=== PATIENT | male | born 1950 | race African-American/Black ===

== ENCOUNTER 2019-08-22 15:58 | Inpatient (IN) ==
[2019-08-22] MEDS ORDERED: KETOROLAC 30 MG/1 ML VIAL IV STA (16:26)
[2019-08-22] MEDS ORDERED: ALBUTEROL/IPRATROPIUM 3 ML NEB RESP TX STA (16:26)
[2019-08-22] MEDS ORDERED: ORPHENADRINE 60 MG/2 ML VIAL IV STA (16:26)
[2019-08-22 17:03] LABS: INR 2.9; Partial Thromboplastin Time 33.4 SECS (23.9-33.8)
[2019-08-22 17:05] LABS: PT Patient Result 29.3 SECS (9.8-11.9)
[2019-08-22 17:09] LABS: Alanine Aminotransferase 39 U/L (16-61); Albumin 3.3 G/DL (3.4-5.0); Alkaline Phosphatase 57 U/L (45-117); Aspartate Amino Transferase 29 U/L (0-37); Blood Urea Nitrogen 16 MG/DL (7-18); Calcium 8.3 MG/DL (8.5-10.1); Estimated Glom Filtration Rate 75 ML/MIN; Ferritin 42.6 ng/ml (26-388); Glucose 98 MG/DL (74-106); Total Protein 5.8 G/DL (6.4-8.3)
[2019-08-22 17:11] LABS: Basophils # 0.1 10*3/uL (0.0-0.2); Basophils % 0.2 % (0.0-0.8); Eosinophils # 0.2 10*3/uL (0.0-0.87); Eosinophils % 0.2 % (0.00-10.9); Hematocrit 33.8 VOL% (42.0-52.0); Hemoglobin 9.4 GM/DL (14.0-18.0); Immature Granulocytes % 0.3 %; Immature Granulocytes Absolute 0.22 #; Lymphocytes # 57.3 10*3/uL (1.4-4.0); Lymphocytes % 82.3 % (21.2-54.2); Mean Corpuscular HGB Conc 27.8 GM/DL (32-36); Mean Corpuscular Volume 93.9 FL (87-102); Mean Platelet Volume 14.4 FL (9.6-12.0); NRBC # 0.08 10*3/uL; Platelet Count 53 T/CUMM (130-400); Red Cell Distribution Width 17.2 % (9.3-17.3); Troponin I 0.048 NG/ML (0.00-0.045)
[2019-08-22 17:13] LABS: White Blood Count 69.7 T/CUMM (4-12)
[2019-08-22 17:17] LABS: Eosinophils 1 % (0-10); Lymphocytes 84 % (20-55); Nucleated Red Blood Cells 1 (0-5); Segmented Neutrophils 13 % (50-85)
[2019-08-22 17:18] LABS: Platelet Estimate Decreased; Smudge Cells Moderate
[2019-08-22 17:19] LABS: Atypical Lymphocytes Few; Hypochromasia Slight; Macrocytosis Slight; Polychromasia Few; Total Cells Counted 100
[2019-08-22] MEDS ORDERED: ACETAMINOPHEN 325 MG TABLET PO PRN (18:17)
[2019-08-22] MEDS ORDERED: MAGNESIUM SULF RIDER 2 GM in PREMIX 1 EACH IV PRN (18:17)
[2019-08-22] MEDS ORDERED: GLUCAGON 1 MG VIAL IM PRN (18:17)
[2019-08-22] MEDS ORDERED: ZALEPLON 5 MG CAPSULE PO PRN (18:17)
[2019-08-22] MEDS ORDERED: MAGNESIUM SULF RIDER 4 GM in PREMIX 1 EACH IV PRN (18:17)
[2019-08-22] MEDS ORDERED: DEXTROSE 10% 250 ML BAG IV PRN (18:17)
[2019-08-22 18:18] LABS: Apearance,Urine CLEAR (Clear); Bilirubin,Urine Negative (Negative); Blood, Urine Negative (Negative); Glucose,Urine (UA) Negative (Negative); Ketones,Urine Negative (Negative); Mucus,Urine Occasional /LPF (Occasional); Nitrite,Urine Negative (Negative); Protein,Urine 30 MG/DL; RBC,Urine 3 /HPF (0-4); Urine Color Amber (Yellow); Urine Specific Gravity 1.023 (1.001-1.035); WBC,Urine 2 /HPF (0-6)
[2019-08-22 18:23] LABS: Barbiturates Screen,Urine Negative (Negative); Benzodiazepines Screen,Urine Negative (Negative); Cannabinoid Screen,Urine Negative (Negative); Opiate Screen,Urine Negative (Negative); Phencyclidine Screen,Urine Negative (Negative)
[2019-08-22] MEDS ORDERED: WARFARIN 7.5 MG TABLET PO SCH (18:30)
[2019-08-22] MEDS: ALBUTEROL/IPRATROPIUM 3 ML NEB RESP TX SCH (19:40)
[2019-08-22] MEDS: FAMOTIDINE 20 MG TABLET PO SCH (23:10)
[2019-08-22] MEDS: DONEPEZIL 5 MG TABLET PO SCH (23:11)
[2019-08-22] MEDS: hydrALAZINE 25 MG TABLET PO SCH (23:11)
[2019-08-22] MEDS: FUROSEMIDE 40 MG/4 ML VIAL IV SCH (23:14)
[2019-08-23] MEDS: ALBUTEROL/IPRATROPIUM 3 ML NEB RESP TX SCH ×4 (00:51→19:28)
[2019-08-23 07:31] LABS: INR 2.9; PT Patient Result 29.8 SECS (9.8-11.9)
[2019-08-23 07:40] LABS: Albumin 3.8 G/DL (3.4-5.0); Calcium 8.7 MG/DL (8.5-10.1); Osmolality,Calculated 286.8 MOS/KG (273-304); Total Protein 6.6 G/DL (6.4-8.3)
[2019-08-23 07:59] LABS: Basophils # 0.1 10*3/uL (0.0-0.2); Basophils % 0.2 % (0.0-0.8); Eosinophils # 0.1 10*3/uL (0.0-0.87); Eosinophils % 0.2 % (0.00-10.9); Hematocrit 35.9 VOL% (42.0-52.0); Immature Granulocytes % 0.4 %; Immature Granulocytes Absolute 0.22 #; Lymphocytes # 41.6 10*3/uL (1.4-4.0); Lymphocytes % 77.8 % (21.2-54.2); Mean Corpuscular HGB Conc 27.3 GM/DL (32-36); Mean Corpuscular Volume 93.5 FL (87-102); Mean Platelet Volume 13.3 FL (9.6-12.0); NRBC # 0.08 10*3/uL; Neutrophils % 14.4 % (38.7-73.9); Red Blood Count 3.84 MC/CUMM (3.8-5.5); Red Cell Distribution Width 17.2 % (9.3-17.3)
[2019-08-23 08:03] LABS: Hemoglobin 9.8 GM/DL (14.0-18.0); Platelet Count 52 T/CUMM (130-400); White Blood Count 53.5 T/CUMM (4-12)
[2019-08-23 08:08] LABS: Atypical Lymphocytes Few; Band Neutrophils 1 % (0-10); Lymphocytes 76 % (20-55); Platelet Estimate Decreased; Segmented Neutrophils 19 % (50-85); Total Cells Counted 100
[2019-08-23 08:09] LABS: Anisocytosis 1+; Macrocytosis Slight; Polychromasia Slight; Smudge Cells 1+
[2019-08-23] MEDS ORDERED: PANTOPRAZOLE 40 MG TABLET PO SCH (09:00)
[2019-08-23] MEDS: LOSARTAN 50 MG TABLET PO SCH (09:26)
[2019-08-23] MEDS: METOPROLOL TARTRATE 25 MG TABLET PO SCH (09:26)
[2019-08-23] MEDS: hydrALAZINE 25 MG TABLET PO SCH ×3 (09:26→22:22)
[2019-08-23] MEDS: LORATADINE 10 MG TABLET PO SCH (09:26)
[2019-08-23] MEDS: ISOSORBIDE MONONITRATE 30 MG TABLET PO SCH (09:26)
[2019-08-23] MEDS: FAMOTIDINE 20 MG TABLET PO SCH ×2 (09:27→22:23)
[2019-08-23] MEDS: POTASSIUM CHLORIDE 20 MEQ TABLET PO PRN (09:27)
[2019-08-23] MEDS: SIMVASTATIN 20 MG TABLET PO SCH (09:27)
[2019-08-23] MEDS: FUROSEMIDE 40 MG/4 ML VIAL IV SCH ×2 (09:29→15:15)
[2019-08-23 12:27] LABS: Apearance,Urine CLEAR (Clear); Bilirubin,Urine Negative (Negative); Blood, Urine Large mg/dL (Negative); Glucose,Urine (UA) Negative (Negative); Ketones,Urine Negative (Negative); Nitrite,Urine Negative (Negative); Protein,Urine Negative; RBC,Urine 282 /HPF (0-4); Urine Color Straw (Yellow); Urine Specific Gravity 1.005 (1.001-1.035); Urine Urobilinogen < 2.0 EU/DL (0.2-1.0); WBC,Urine 2 /HPF (0-6)
[2019-08-23] MEDS ORDERED: WARFARIN 5 MG TABLET PO SCH (18:30)
[2019-08-23] MEDS ORDERED: TAMSULOSIN 0.4 MG CAPSULE PO SCH (21:00)
[2019-08-23] MEDS: DONEPEZIL 5 MG TABLET PO SCH (22:22)
[2019-08-24] MEDS: ALBUTEROL/IPRATROPIUM 3 ML NEB RESP TX SCH ×4 (01:59→19:35)
[2019-08-24 05:31] LABS: Calcium 8.2 MG/DL (8.5-10.1); Osmolality,Calculated 284.1 MOS/KG (273-304)
[2019-08-24 05:38] LABS: Basophils # 0.2 10*3/uL (0.0-0.2); Basophils % 0.3 % (0.0-0.8); Eosinophils # 0.1 10*3/uL (0.0-0.87); Eosinophils % 0.3 % (0.00-10.9); Hemoglobin 9.4 GM/DL (14.0-18.0); Immature Granulocytes % 0.3 %; Immature Granulocytes Absolute 0.18 #; Lymphocytes # 37.8 10*3/uL (1.4-4.0); Lymphocytes % 73.1 % (21.2-54.2); Mean Corpuscular HGB Conc 28.5 GM/DL (32-36); Mean Corpuscular Volume 90.7 FL (87-102); Monocytes % 7.9 % (1.7-12.7); NRBC # 0.03 10*3/uL; Neutrophils % 18.1 % (38.7-73.9); Platelet Count 46 T/CUMM (130-400); Red Blood Count 3.64 MC/CUMM (3.8-5.5); Red Cell Distribution Width 16.9 % (9.3-17.3)
[2019-08-24 05:40] LABS: White Blood Count 51.8 T/CUMM (4-12)
[2019-08-24 05:58] LABS: Atypical Lymphocytes Moderate; Band Neutrophils 1 % (0-10); Lymphocytes 72 % (20-55); Segmented Neutrophils 25 % (50-85); Total Cells Counted 100
[2019-08-24 05:59] LABS: Hypochromasia 1+; Macrocytosis Slight; Smudge Cells Few
[2019-08-24 06:00] LABS: Platelet Estimate Decreased; Polychromasia Slight
[2019-08-24] MEDS ORDERED: MAGNESIUM HYDROXIDE SUSP 30 ML UDCUP PO ONE (08:29)
[2019-08-24] MEDS ORDERED: POTASSIUM CHLORIDE 20 MEQ TABLET PO ONE (08:33)
[2019-08-24] MEDS: hydrALAZINE 25 MG TABLET PO SCH ×3 (09:22→21:45)
[2019-08-24] MEDS: ISOSORBIDE MONONITRATE 30 MG TABLET PO SCH (09:22)
[2019-08-24] MEDS: SIMVASTATIN 20 MG TABLET PO SCH (09:22)
[2019-08-24] MEDS: TAMSULOSIN 0.4 MG CAPSULE PO SCH ×2 (09:22→21:44)
[2019-08-24] MEDS: LOSARTAN 50 MG TABLET PO SCH (09:23)
[2019-08-24] MEDS: LORATADINE 10 MG TABLET PO SCH (09:23)
[2019-08-24] MEDS: FAMOTIDINE 20 MG TABLET PO SCH ×2 (09:23→21:44)
[2019-08-24] MEDS: METOPROLOL TARTRATE 25 MG TABLET PO SCH (09:24)
[2019-08-24] MEDS: FUROSEMIDE 40 MG/4 ML VIAL IV SCH ×2 (09:25→16:00)
[2019-08-24] MEDS: POTASSIUM CHLORIDE 20 MEQ TABLET PO PRN ×2 (14:12→16:01)
[2019-08-24] MEDS: ASPIRIN EC 81 MG TABLET PO SCH (18:20)
[2019-08-24] MEDS: DONEPEZIL 5 MG TABLET PO SCH (21:45)
[2019-08-25 05:14] LABS: Calcium 8.3 MG/DL (8.5-10.1); Osmolality,Calculated 283.1 MOS/KG (273-304)
[2019-08-25 05:32] LABS: Basophils # 0.1 10*3/uL (0.0-0.2); Basophils % 0.1 % (0.0-0.8); Eosinophils # 0.2 10*3/uL (0.0-0.87); Eosinophils % 0.4 % (0.00-10.9); Hematocrit 34.7 VOL% (42.0-52.0); Hemoglobin 9.9 GM/DL (14.0-18.0); Immature Granulocytes % 0.3 %; Immature Granulocytes Absolute 0.17 #; Lymphocytes # 46.7 10*3/uL (1.4-4.0); Lymphocytes % 78.9 % (21.2-54.2); Mean Corpuscular HGB Conc 28.5 GM/DL (32-36); Mean Corpuscular Volume 90.4 FL (87-102); Mean Platelet Volume 13.9 FL (9.6-12.0); NRBC # 0.02 10*3/uL; Neutrophils % 13.3 % (38.7-73.9); Platelet Count 48 T/CUMM (130-400); Red Blood Count 3.84 MC/CUMM (3.8-5.5); Red Cell Distribution Width 16.9 % (9.3-17.3)
[2019-08-25 05:58] LABS: White Blood Count 59.2 T/CUMM (4-12)
[2019-08-25 06:38] LABS: Eosinophils 1 % (0-10); Lymphocytes 78 % (20-55); Segmented Neutrophils 20 % (50-85); Total Cells Counted 100
[2019-08-25 06:39] LABS: Anisocytosis 1+; Platelet Estimate Decreased; Smudge Cells 2+
[2019-08-25] MEDS: ALBUTEROL/IPRATROPIUM 3 ML NEB RESP TX SCH ×4 (07:27→20:52)
[2019-08-25] MEDS: hydrALAZINE 25 MG TABLET PO SCH ×3 (09:05→21:22)
[2019-08-25] MEDS: FUROSEMIDE 40 MG/4 ML VIAL IV SCH (09:05)
[2019-08-25] MEDS: ASPIRIN EC 81 MG TABLET PO SCH (09:06)
[2019-08-25] MEDS: METOPROLOL TARTRATE 25 MG TABLET PO SCH (09:06)
[2019-08-25] MEDS: SIMVASTATIN 20 MG TABLET PO SCH (09:06)
[2019-08-25] MEDS: ISOSORBIDE MONONITRATE 30 MG TABLET PO SCH (09:07)
[2019-08-25] MEDS: LOSARTAN 50 MG TABLET PO SCH (09:07)
[2019-08-25] MEDS: LORATADINE 10 MG TABLET PO SCH (09:07)
[2019-08-25] MEDS: FAMOTIDINE 20 MG TABLET PO SCH ×2 (09:07→21:22)
[2019-08-25] MEDS: TAMSULOSIN 0.4 MG CAPSULE PO SCH ×2 (09:07→21:21)
[2019-08-25] MEDS: POTASSIUM CHLORIDE 20 MEQ TABLET PO PRN (10:47)
[2019-08-25] MEDS: FUROSEMIDE 40 MG TABLET PO SCH (15:30)
[2019-08-25] MEDS: DONEPEZIL 5 MG TABLET PO SCH (21:22)
[2019-08-25] MEDS: FINASTERIDE 5 MG TABLET PO SCH (21:22)
[2019-08-26] MEDS: ALBUTEROL/IPRATROPIUM 3 ML NEB RESP TX SCH ×4 (00:45→19:28)
[2019-08-26 05:26] LABS: Basophils # 0.1 10*3/uL (0.0-0.2); Basophils % 0.1 % (0.0-0.8); Eosinophils # 0.3 10*3/uL (0.0-0.87); Eosinophils % 0.6 % (0.00-10.9); Hematocrit 34.2 VOL% (42.0-52.0); Immature Granulocytes % 0.2 %; Immature Granulocytes Absolute 0.14 #; Lymphocytes # 42.6 10*3/uL (1.4-4.0); Mean Corpuscular HGB Conc 29.2 GM/DL (32-36); Mean Corpuscular Volume 88.8 FL (87-102); Mean Platelet Volume 12.7 FL (9.6-12.0); Monocytes % 12.2 % (1.7-12.7); NRBC # 0.02 10*3/uL; Neutrophils % 10.9 % (38.7-73.9); Platelet Count 45 T/CUMM (130-400); Red Blood Count 3.85 MC/CUMM (3.8-5.5); Red Cell Distribution Width 16.8 % (9.3-17.3)
[2019-08-26 05:52] LABS: Hemoglobin 10.1 GM/DL (14.0-18.0)
[2019-08-26 05:54] LABS: Albumin 2.9 G/DL (3.4-5.0); Bilirubin,Total 1.3 MG/DL (0.2-1.0); Calcium 8.3 MG/DL (8.5-10.1); Osmolality,Calculated 278.4 MOS/KG (273-304); Risk Ratio 4.06; Total Protein 5.3 G/DL (6.4-8.3); VLDL CHOLESTEROL 21.2 MG/DL
[2019-08-26 05:54] LABS: White Blood Count 56.1 T/CUMM (4-12)
[2019-08-26 05:56] LABS: INR 1.9; PT Patient Result 19.9 SECS (9.8-11.9)
[2019-08-26 06:08] LABS: Band Neutrophils 1 % (0-10); Eosinophils 1 % (0-10); Lymphocytes 81 % (20-55); Segmented Neutrophils 15 % (50-85); Smudge Cells 1+; Total Cells Counted 100
[2019-08-26 06:09] LABS: Anisocytosis 1+; Platelet Estimate Decreased
[2019-08-26] MEDS: ASPIRIN EC 81 MG TABLET PO SCH (08:49)
[2019-08-26] MEDS: METOPROLOL TARTRATE 25 MG TABLET PO SCH (08:49)
[2019-08-26] MEDS: hydrALAZINE 25 MG TABLET PO SCH ×3 (08:49→22:17)
[2019-08-26] MEDS: FUROSEMIDE 40 MG TABLET PO SCH ×2 (08:49→16:41)
[2019-08-26] MEDS: SIMVASTATIN 20 MG TABLET PO SCH (08:50)
[2019-08-26] MEDS: LORATADINE 10 MG TABLET PO SCH (08:50)
[2019-08-26] MEDS: ISOSORBIDE MONONITRATE 30 MG TABLET PO SCH (08:50)
[2019-08-26] MEDS: FAMOTIDINE 20 MG TABLET PO SCH ×2 (08:50→22:17)
[2019-08-26] MEDS: LOSARTAN 50 MG TABLET PO SCH (08:50)
[2019-08-26] MEDS: TAMSULOSIN 0.4 MG CAPSULE PO SCH ×2 (08:50→22:17)
[2019-08-26] MEDS: POTASSIUM CHLORIDE 20 MEQ TABLET PO PRN (16:41)
[2019-08-26] MEDS ORDERED: WARFARIN 5 MG TABLET PO SCH (18:00)
[2019-08-26] MEDS: FINASTERIDE 5 MG TABLET PO SCH (22:17)
[2019-08-26] MEDS: DONEPEZIL 5 MG TABLET PO SCH (22:22)
[2019-08-27] MEDS: ALBUTEROL/IPRATROPIUM 3 ML NEB RESP TX SCH ×4 (01:13→20:18)
[2019-08-27 06:30] LABS: INR 1.4; PT Patient Result 14.6 SECS (9.8-11.9)
[2019-08-27 06:49] LABS: Basophils # 0.1 10*3/uL (0.0-0.2); Basophils % 0.2 % (0.0-0.8); Eosinophils # 0.3 10*3/uL (0.0-0.87); Eosinophils % 0.5 % (0.00-10.9); Hematocrit 35.6 VOL% (42.0-52.0); Hemoglobin 10.2 GM/DL (14.0-18.0); Immature Granulocytes % 0.2 %; Immature Granulocytes Absolute 0.13 #; Lymphocytes % 82.6 % (21.2-54.2); Mean Corpuscular HGB Conc 28.7 GM/DL (32-36); Mean Corpuscular Volume 90.4 FL (87-102); Mean Platelet Volume 13.3 FL (9.6-12.0); Monocytes % 7.9 % (1.7-12.7); Neutrophils % 8.6 % (38.7-73.9); Platelet Count 49 T/CUMM (130-400); Red Blood Count 3.94 MC/CUMM (3.8-5.5); Red Cell Distribution Width 16.3 % (9.3-17.3)
[2019-08-27 06:52] LABS: Calcium 8.3 MG/DL (8.5-10.1); Osmolality,Calculated 278.4 MOS/KG (273-304)
[2019-08-27 06:53] LABS: Albumin 2.9 G/DL (3.4-5.0); Bilirubin,Total 1.7 MG/DL (0.2-1.0); Calcium 8.1 MG/DL (8.5-10.1); Osmolality,Calculated 280.3 MOS/KG (273-304); Total Protein 5.3 G/DL (6.4-8.3)
[2019-08-27 06:53] LABS: White Blood Count 58.1 T/CUMM (4-12)
[2019-08-27 07:04] LABS: Atypical Lymphocytes Few; Hypochromasia 1+; Lymphocytes 83 % (20-55); Platelet Estimate Decreased; Segmented Neutrophils 15 % (50-85); Smudge Cells Moderate; Total Cells Counted 100
[2019-08-27] MEDS: METOPROLOL TARTRATE 25 MG TABLET PO SCH ×3 (09:03→21:07)
[2019-08-27] MEDS: LORATADINE 10 MG TABLET PO SCH (09:03)
[2019-08-27] MEDS: hydrALAZINE 25 MG TABLET PO SCH ×3 (09:03→21:08)
[2019-08-27] MEDS: LOSARTAN 50 MG TABLET PO SCH (09:04)
[2019-08-27] MEDS: FAMOTIDINE 20 MG TABLET PO SCH ×2 (09:04→21:07)
[2019-08-27] MEDS: SIMVASTATIN 20 MG TABLET PO SCH (09:04)
[2019-08-27] MEDS: TAMSULOSIN 0.4 MG CAPSULE PO SCH ×2 (09:04→21:08)
[2019-08-27] MEDS: ISOSORBIDE MONONITRATE 30 MG TABLET PO SCH (09:04)
[2019-08-27] MEDS: FUROSEMIDE 40 MG TABLET PO SCH ×2 (09:04→16:56)
[2019-08-27] MEDS ORDERED: WARFARIN 7.5 MG TABLET PO SCH (18:00)
[2019-08-27] MEDS: DONEPEZIL 5 MG TABLET PO SCH (21:07)
[2019-08-27] MEDS: FINASTERIDE 5 MG TABLET PO SCH (21:07)
[2019-08-28] MEDS: ALBUTEROL/IPRATROPIUM 3 ML NEB RESP TX SCH ×4 (01:01→21:01)
[2019-08-28 05:33] LABS: Basophils # 0.1 10*3/uL (0.0-0.2); Basophils % 0.1 % (0.0-0.8); Eosinophils # 0.3 10*3/uL (0.0-0.87); Eosinophils % 0.5 % (0.00-10.9); Hematocrit 35.4 VOL% (42.0-52.0); Hemoglobin 10.2 GM/DL (14.0-18.0); Immature Granulocytes % 0.3 %; Immature Granulocytes Absolute 0.18 #; Lymphocytes # 53.1 10*3/uL (1.4-4.0); Lymphocytes % 76.6 % (21.2-54.2); Mean Corpuscular HGB Conc 28.8 GM/DL (32-36); Mean Corpuscular Volume 88.7 FL (87-102); Mean Platelet Volume 13.6 FL (9.6-12.0); Monocytes % 12.6 % (1.7-12.7); NRBC # 0.03 10*3/uL; Neutrophils % 9.9 % (38.7-73.9); Platelet Count 50 T/CUMM (130-400); Red Blood Count 3.99 MC/CUMM (3.8-5.5); Red Cell Distribution Width 16.2 % (9.3-17.3)
[2019-08-28 05:40] LABS: White Blood Count 69.3 T/CUMM (4-12)
[2019-08-28 05:41] LABS: INR 1.3; PT Patient Result 13.5 SECS (9.8-11.9)
[2019-08-28 05:54] LABS: Atypical Lymphocytes 1+; Hypochromasia 1+; Lymphocytes 79 % (20-55); Platelet Estimate Decreased; Segmented Neutrophils 19 % (50-85); Smudge Cells Moderate; Total Cells Counted 100
[2019-08-28 05:59] LABS: Calcium 8.2 MG/DL (8.5-10.1); Osmolality,Calculated 277.5 MOS/KG (273-304)
[2019-08-28 06:03] LABS: Bilirubin,Total 0.8 MG/DL (0.2-1.0); Calcium 8.2 MG/DL (8.5-10.1); Osmolality,Calculated 275.7 MOS/KG (273-304); Total Protein 5.8 G/DL (6.4-8.3)
[2019-08-28] MEDS ORDERED: LIDOCAINE 2% TOP JELLY 20 ML VIAL INTRAURETH ONE (07:21)
[2019-08-28] MEDS ORDERED: NEOMYCIN/POLYMYXIN IRRIG SOLN 1 ML AMP BLADDERIRR ONE (09:05)
[2019-08-28] MEDS: FUROSEMIDE 40 MG TABLET PO SCH ×2 (09:31→15:07)
[2019-08-28] MEDS: LORATADINE 10 MG TABLET PO SCH (09:31)
[2019-08-28] MEDS: ISOSORBIDE MONONITRATE 30 MG TABLET PO SCH (09:32)
[2019-08-28] MEDS: TAMSULOSIN 0.4 MG CAPSULE PO SCH ×2 (09:32→20:19)
[2019-08-28] MEDS: FAMOTIDINE 20 MG TABLET PO SCH ×2 (09:32→20:18)
[2019-08-28] MEDS: METOPROLOL TARTRATE 25 MG TABLET PO SCH ×2 (09:32→20:18)
[2019-08-28] MEDS: LOSARTAN 50 MG TABLET PO SCH (09:32)
[2019-08-28] MEDS: hydrALAZINE 25 MG TABLET PO SCH ×3 (09:32→20:18)
[2019-08-28] MEDS: SIMVASTATIN 20 MG TABLET PO SCH (09:33)
[2019-08-28] MEDS: FINASTERIDE 5 MG TABLET PO SCH (20:18)
[2019-08-28] MEDS: DONEPEZIL 5 MG TABLET PO SCH (20:19)
[2019-08-29] MEDS: ALBUTEROL/IPRATROPIUM 3 ML NEB RESP TX SCH ×2 (01:09→07:12)
[2019-08-29 08:15] VITALS: BP 118/76
[2019-08-29] MEDS: FUROSEMIDE 40 MG TABLET PO SCH (08:53)
[2019-08-29] MEDS: METOPROLOL TARTRATE 25 MG TABLET PO SCH (08:53)
[2019-08-29] MEDS: ISOSORBIDE MONONITRATE 30 MG TABLET PO SCH (08:53)
[2019-08-29] MEDS: hydrALAZINE 25 MG TABLET PO SCH (08:53)
[2019-08-29] MEDS: LORATADINE 10 MG TABLET PO SCH (08:53)
[2019-08-29] MEDS: LOSARTAN 50 MG TABLET PO SCH (08:53)
[2019-08-29] MEDS: SIMVASTATIN 20 MG TABLET PO SCH (08:54)
[2019-08-29] MEDS: TAMSULOSIN 0.4 MG CAPSULE PO SCH (08:54)
[2019-08-29] MEDS: FAMOTIDINE 20 MG TABLET PO SCH (08:54)
== END 2019-08-29 13:25 | disposition home health service (06) | DRG 725 ==
LOC: N.EDINP 15:58 → N.ED 15:58 → SUATTDRO 18:17 → N.TELES 21:11 → SUATTDRO 08-26 15:16
PROVIDERS: ADMIT Family Medicine; ATTEND Internal Medicine

== ENCOUNTER 2022-03-18 00:10 | Inpatient (IN) ==
[2022-03-18] MEDS ORDERED: SODIUM CHLORIDE 0.9% 1,000 ML IV STA (00:23)
[2022-03-18] MEDS ORDERED: ACETAMINOPHEN 500 MG TABLET PO STA (00:23)
[2022-03-18 01:21] LABS: Basophils % 0.4 % (0.0-0.8); Eosinophils % 0.8 % (0.00-10.9); Hematocrit 33.1 VOL% (42.0-52.0); Hemoglobin 10.4 GM/DL (14.0-18.0); Immature Granulocytes % 0.4 %; Immature Granulocytes Absolute 0.01 #; Lymphocytes # 0.5 10*3/uL (1.4-4.0); Mean Corpuscular HGB Conc 31.4 GM/DL (32-36); Mean Corpuscular Volume 98.2 FL (87-102); Mean Platelet Volume 12.6 FL (9.6-12.0); Monocytes # 0.1 10*3/uL (0.11-0.8); Monocytes % 3.7 % (1.7-12.7); Neutrophils % 72.7 % (38.7-73.9); Red Blood Count 3.37 MC/CUMM (3.8-5.5); Red Cell Distribution Width 14.4 % (9.3-17.3); White Blood Count 2.4 T/CUMM (4-12)
[2022-03-18 01:27] LABS: Platelet Count 39 T/CUMM (130-400)
[2022-03-18 01:30] LABS: Bacteria,Urine Occasional /HPF (Few); Bilirubin,Urine Negative (Negative); Blood, Urine Negative (Negative); Glucose,Urine (UA) Negative (Negative); Ketones,Urine Negative (Negative); Mucus,Urine Occasional /LPF (Occasional); Nitrite,Urine Negative (Negative); Protein,Urine 30 mg/dL (Negative); RBC,Urine 2 /HPF (0-4); Urine Appearance Slightly Hazy (Clear); Urine Color Yellow (Yellow); Urine Specific Gravity 1.016 (1.001-1.035)
[2022-03-18 01:35] LABS: Albumin 3.2 G/DL (3.4-5.0); Bilirubin,Total 1.5 MG/DL (0.20-1.00); Calcium 8.2 MG/DL (8.5-10.1); Osmolality,Calculated 278.7 MOS/KG (273-304); Potassium 3.5 MMOL/L (3.5-5.1); Total Protein 6.1 G/DL (6.4-8.2)
[2022-03-18] MEDS ORDERED: CEFEPIME 1,000 MG in SODIUM CHLORIDE 0.9% 100 ML IV STA (02:12)
[2022-03-18 02:40] LABS: Platelet Estimate Decreased
[2022-03-18] MEDS ORDERED: ALUMINUM/MAGNES/SIMETH MAX STR 30 ML UDCUP PO PRN (02:55)
[2022-03-18] MEDS ORDERED: ACETAMINOPHEN 325 MG TABLET PO PRN (02:55)
[2022-03-18] MEDS ORDERED: ONDANSETRON 4 MG/2 ML VIAL IV PRN (02:55)
[2022-03-18] MEDS: ALBUTEROL/IPRATROPIUM 3 ML NEB RESP TX SCH ×3 (07:00→19:55)
[2022-03-18] MEDS ORDERED: MEROPENEM 500 MG VIAL ONE (08:43)
[2022-03-18] MEDS ORDERED: SODIUM CHLORIDE 0.9% 100 ML IV ONE (08:43)
[2022-03-18] MEDS: carvediloL 3.125 MG TABLET PO SCH ×2 (08:47→21:34)
[2022-03-18] MEDS: DOCUSATE SODIUM 100 MG CAPSULE PO SCH ×2 (08:47→21:34)
[2022-03-18] MEDS: ENOXAPARIN 40 MG/0.4 ML SYRINGE SUBCUT SCH (08:48)
[2022-03-18] MEDS: PANTOPRAZOLE 40 MG TABLET PO SCH (08:48)
[2022-03-18 09:33] LABS: Basophils % 1.2 % (0.0-0.8); Eosinophils % 1.2 % (0.00-10.9); Hematocrit 51.1 VOL% (42.0-52.0); Hemoglobin 16.1 GM/DL (14.0-18.0); Lymphocytes # 0.2 10*3/uL (1.4-4.0); Lymphocytes % 17.9 % (21.2-54.2); Mean Corpuscular HGB Conc 31.5 GM/DL (32-36); Mean Corpuscular Volume 98.1 FL (87-102); Monocytes % 1.2 % (1.7-12.7); Neutrophils % 78.5 % (38.7-73.9); Red Blood Count 5.21 MC/CUMM (3.8-5.5); Red Cell Distribution Width 14.3 % (9.3-17.3)
[2022-03-18 09:41] LABS: Platelet Count 15 T/CUMM (130-400)
[2022-03-18 09:42] LABS: White Blood Count 0.8 T/CUMM (4-12)
[2022-03-18 09:54] LABS: Lymphocytes 20 % (20-55); Total Cells Counted 100
[2022-03-18 09:55] LABS: Platelet Estimate Decreased
[2022-03-18] MEDS ORDERED: MEROPENEM 1,000 MG in SODIUM CHLORIDE 0.9% 100 ML IV SCH (10:00)
[2022-03-18 10:10] LABS: Eosinophils % 1.1 % (0.00-10.9); Hematocrit 30.8 VOL% (42.0-52.0); Hemoglobin 9.3 GM/DL (14.0-18.0); Immature Granulocytes % 0.5 %; Immature Granulocytes Absolute 0.01 #; Lymphocytes # 0.4 10*3/uL (1.4-4.0); Lymphocytes % 20.9 % (21.2-54.2); Mean Corpuscular HGB Conc 30.2 GM/DL (32-36); Mean Platelet Volume 12.5 FL (9.6-12.0); Monocytes # 0.1 10*3/uL (0.11-0.8); Monocytes % 2.7 % (1.7-12.7); Neutrophils % 74.8 % (38.7-73.9); Red Blood Count 3.02 MC/CUMM (3.8-5.5); Red Cell Distribution Width 14.4 % (9.3-17.3); White Blood Count 1.8 T/CUMM (4-12)
[2022-03-18 10:18] LABS: Platelet Count 35 T/CUMM (130-400)
[2022-03-18] MEDS: MEROPENEM 500 MG in SODIUM CHLORIDE 0.9% 100 ML IV SCH ×3 (10:30→21:34)
[2022-03-18 10:36] LABS: Lymphocytes 13 % (20-55); Total Cells Counted 100
[2022-03-18 10:55] LABS: Platelet Estimate Decreased
[2022-03-18] MEDS: LACTATED RINGERS 1,000 ML IV SCH (16:50)
[2022-03-19] MEDS: ALBUTEROL/IPRATROPIUM 3 ML NEB RESP TX SCH ×4 (01:13→19:38)
[2022-03-19] MEDS: MEROPENEM 500 MG in SODIUM CHLORIDE 0.9% 100 ML IV SCH ×4 (04:37→21:47)
[2022-03-19 05:21] LABS: Eosinophils % 0.6 % (0.00-10.9); Hematocrit 27.1 VOL% (42.0-52.0); Hemoglobin 8.5 GM/DL (14.0-18.0); Immature Granulocytes % 0.6 %; Immature Granulocytes Absolute 0.01 #; Lymphocytes # 0.4 10*3/uL (1.4-4.0); Lymphocytes % 24.8 % (21.2-54.2); Mean Corpuscular HGB Conc 31.4 GM/DL (32-36); Mean Corpuscular Volume 99.3 FL (87-102); Mean Platelet Volume 13.6 FL (9.6-12.0); Monocytes # 0.1 10*3/uL (0.11-0.8); Monocytes % 6.2 % (1.7-12.7); Neutrophils % 67.8 % (38.7-73.9); Red Blood Count 2.73 MC/CUMM (3.8-5.5); Red Cell Distribution Width 14.2 % (9.3-17.3); White Blood Count 1.6 T/CUMM (4-12)
[2022-03-19 05:23] LABS: Platelet Count 25 T/CUMM (130-400)
[2022-03-19 05:33] LABS: Albumin 2.8 G/DL (3.4-5.0); Bilirubin,Total 1.5 MG/DL (0.20-1.00); Calcium 7.9 MG/DL (8.5-10.1); Osmolality,Calculated 279.5 MOS/KG (273-304); Potassium 3.6 MMOL/L (3.5-5.1); Total Protein 5.4 G/DL (6.4-8.2)
[2022-03-19 05:54] LABS: Lymphocytes 27 % (20-55); Stomatocytes Few; Total Cells Counted 100
[2022-03-19 05:55] LABS: Platelet Estimate Decreased
[2022-03-19] MEDS: LACTATED RINGERS 1,000 ML IV SCH ×2 (06:49→18:27)
[2022-03-19] MEDS ORDERED: FILGRASTIM-SNDZ 300 MCG/0.5 ML SYRINGE SUBCUT ONE (08:50)
[2022-03-19] MEDS: carvediloL 3.125 MG TABLET PO SCH ×2 (09:51→21:47)
[2022-03-19] MEDS: PANTOPRAZOLE 40 MG TABLET PO SCH (09:52)
[2022-03-19] MEDS: DOCUSATE SODIUM 100 MG CAPSULE PO SCH ×2 (09:53→21:46)
[2022-03-19] MEDS: ENOXAPARIN 40 MG/0.4 ML SYRINGE SUBCUT SCH (09:56)
[2022-03-19] MEDS: TAMSULOSIN 0.4 MG CAPSULE PO SCH (21:49)
[2022-03-20] MEDS: ALBUTEROL/IPRATROPIUM 3 ML NEB RESP TX SCH ×4 (00:08→19:32)
[2022-03-20 04:52] LABS: Albumin 2.5 G/DL (3.4-5.0); Bilirubin,Total 1.2 MG/DL (0.20-1.00); Calcium 7.3 MG/DL (8.5-10.1); Osmolality,Calculated 276.7 MOS/KG (273-304); Potassium 3.5 MMOL/L (3.5-5.1)
[2022-03-20] MEDS: MEROPENEM 500 MG in SODIUM CHLORIDE 0.9% 100 ML IV SCH ×4 (05:31→22:00)
[2022-03-20 07:37] LABS: Eosinophils % 0.6 % (0.00-10.9); Hematocrit 25.1 VOL% (42.0-52.0); Hemoglobin 7.9 GM/DL (14.0-18.0); Immature Granulocytes % 1.2 %; Immature Granulocytes Absolute 0.02 #; Lymphocytes # 0.3 10*3/uL (1.4-4.0); Lymphocytes % 19.8 % (21.2-54.2); Mean Corpuscular HGB Conc 31.5 GM/DL (32-36); Mean Corpuscular Volume 98.8 FL (87-102); Mean Platelet Volume 13.7 FL (9.6-12.0); Monocytes # 0.1 10*3/uL (0.11-0.8); Neutrophils % 72.4 % (38.7-73.9); Red Blood Count 2.54 MC/CUMM (3.8-5.5); Red Cell Distribution Width 14.2 % (9.3-17.3); White Blood Count 1.7 T/CUMM (4-12)
[2022-03-20 07:40] LABS: Platelet Count 24 T/CUMM (130-400)
[2022-03-20 08:14] LABS: Band Neutrophils 4 % (0-10); Lymphocytes 28 % (20-55); Total Cells Counted 100
[2022-03-20 08:15] LABS: Platelet Estimate Decreased
[2022-03-20] MEDS: PANTOPRAZOLE 40 MG TABLET PO SCH (08:37)
[2022-03-20] MEDS: DOCUSATE SODIUM 100 MG CAPSULE PO SCH ×2 (08:37→22:00)
[2022-03-20] MEDS: TAMSULOSIN 0.4 MG CAPSULE PO SCH ×2 (08:37→22:00)
[2022-03-20] MEDS: carvediloL 3.125 MG TABLET PO SCH ×2 (08:37→22:00)
[2022-03-20] MEDS: LACTATED RINGERS 1,000 ML IV SCH (09:22)
[2022-03-20] MEDS ORDERED: PEGFILGRASTIM 6 MG/0.6 ML KIT SUBCUT SCH (10:45)
[2022-03-20] MEDS: FILGRASTIM-SNDZ 300 MCG/0.5 ML SYRINGE SUBCUT SCH (13:15)
[2022-03-21] MEDS: ALBUTEROL/IPRATROPIUM 3 ML NEB RESP TX SCH ×4 (00:39→19:38)
[2022-03-21] MEDS: MEROPENEM 500 MG in SODIUM CHLORIDE 0.9% 100 ML IV SCH ×4 (04:26→22:40)
[2022-03-21 05:04] LABS: Basophils % 0.6 % (0.0-0.8); Eosinophils % 1.2 % (0.00-10.9); Hematocrit 25.3 VOL% (42.0-52.0); Immature Granulocytes % 0.6 %; Immature Granulocytes Absolute 0.01 #; Lymphocytes # 0.5 10*3/uL (1.4-4.0); Lymphocytes % 31.7 % (21.2-54.2); Mean Corpuscular HGB Conc 31.6 GM/DL (32-36); Mean Corpuscular Volume 97.7 FL (87-102); Monocytes # 0.1 10*3/uL (0.11-0.8); Monocytes % 6.2 % (1.7-12.7); Neutrophils % 59.7 % (38.7-73.9); Red Blood Count 2.59 MC/CUMM (3.8-5.5); White Blood Count 1.6 T/CUMM (4-12)
[2022-03-21 05:13] LABS: Platelet Count 22 T/CUMM (130-400)
[2022-03-21 05:45] LABS: Albumin 2.4 G/DL (3.4-5.0); Bilirubin,Total 1.2 MG/DL (0.20-1.00); Calcium 7.6 MG/DL (8.5-10.1); Osmolality,Calculated 277.5 MOS/KG (273-304); Potassium 3.6 MMOL/L (3.5-5.1); Total Protein 4.8 G/DL (6.4-8.2)
[2022-03-21 05:49] LABS: Band Neutrophils 1 % (0-10); Lymphocytes 30 % (20-55); Platelet Estimate Decreased; Total Cells Counted 100
[2022-03-21] MEDS: DOCUSATE SODIUM 100 MG CAPSULE PO SCH ×2 (10:01→22:40)
[2022-03-21] MEDS: PANTOPRAZOLE 40 MG TABLET PO SCH (10:02)
[2022-03-21] MEDS: FILGRASTIM-SNDZ 300 MCG/0.5 ML SYRINGE SUBCUT SCH (10:03)
[2022-03-21] MEDS: TAMSULOSIN 0.4 MG CAPSULE PO SCH (10:05)
[2022-03-21] MEDS: carvediloL 3.125 MG TABLET PO SCH (10:10)
[2022-03-21] MEDS: LACTATED RINGERS 1,000 ML IV SCH ×2 (14:30)
[2022-03-22] MEDS: ALBUTEROL/IPRATROPIUM 3 ML NEB RESP TX SCH ×4 (01:50→20:45)
[2022-03-22] MEDS: MEROPENEM 500 MG in SODIUM CHLORIDE 0.9% 100 ML IV SCH ×4 (03:25→21:38)
[2022-03-22 04:52] LABS: Eosinophils % 1.2 % (0.00-10.9); Hematocrit 24.7 VOL% (42.0-52.0); Hemoglobin 7.8 GM/DL (14.0-18.0); Immature Granulocytes % 4.7 %; Immature Granulocytes Absolute 0.08 #; Lymphocytes # 0.7 10*3/uL (1.4-4.0); Mean Corpuscular HGB Conc 31.6 GM/DL (32-36); Mean Corpuscular Volume 97.2 FL (87-102); Monocytes # 0.1 10*3/uL (0.11-0.8); Monocytes % 3.5 % (1.7-12.7); Neutrophils % 50.6 % (38.7-73.9); Red Blood Count 2.54 MC/CUMM (3.8-5.5); Red Cell Distribution Width 14.1 % (9.3-17.3); White Blood Count 1.7 T/CUMM (4-12)
[2022-03-22 05:05] LABS: Platelet Count 22 T/CUMM (130-400)
[2022-03-22] MEDS: LACTATED RINGERS 1,000 ML IV SCH (05:07)
[2022-03-22 05:12] LABS: Hypochromia Slight; Microcytosis Slight; Platelet Estimate Decreased
[2022-03-22 05:22] LABS: Albumin 2.4 G/DL (3.4-5.0); Bilirubin,Total 0.9 MG/DL (0.20-1.00); Calcium 7.8 MG/DL (8.5-10.1); Osmolality,Calculated 281.3 MOS/KG (273-304); Potassium 3.6 MMOL/L (3.5-5.1); Total Protein 4.7 G/DL (6.4-8.2)
[2022-03-22] MEDS ORDERED: DEXAMETHASONE 10 MG/1 ML VIAL IV ONE (08:32)
[2022-03-22] MEDS: PANTOPRAZOLE 40 MG TABLET PO SCH (09:47)
[2022-03-22] MEDS: DOCUSATE SODIUM 100 MG CAPSULE PO SCH ×2 (09:47→21:38)
[2022-03-22] MEDS: DEXT 5% NACL 0.45% KCL 20 MEQ 20 MEQ/1,000 ML BAG IV SCH ×2 (09:48→21:37)
[2022-03-22] MEDS ORDERED: DEXAMETHASONE INJ 20 MG in SODIUM CHLORIDE 0.9% 50 ML IV ONE (10:30)
[2022-03-22] MEDS: FILGRASTIM-SNDZ 300 MCG/0.5 ML SYRINGE SUBCUT SCH (11:06)
[2022-03-23] MEDS: ALBUTEROL/IPRATROPIUM 3 ML NEB RESP TX SCH ×4 (00:49→20:22)
[2022-03-23] MEDS: MEROPENEM 500 MG in SODIUM CHLORIDE 0.9% 100 ML IV SCH ×4 (04:27→21:19)
[2022-03-23 05:06] LABS: Basophils % 0.7 % (0.0-0.8); Hematocrit 28.2 VOL% (42.0-52.0); Hemoglobin 8.6 GM/DL (14.0-18.0); Immature Granulocytes % 10.7 %; Immature Granulocytes Absolute 0.49 #; Lymphocytes # 1.8 10*3/uL (1.4-4.0); Lymphocytes % 39.7 % (21.2-54.2); Mean Corpuscular HGB Conc 30.5 GM/DL (32-36); Mean Corpuscular Volume 98.9 FL (87-102); Monocytes # 0.1 10*3/uL (0.11-0.8); Monocytes % 1.1 % (1.7-12.7); Neutrophils % 47.8 % (38.7-73.9); Red Blood Count 2.85 MC/CUMM (3.8-5.5); Red Cell Distribution Width 14.1 % (9.3-17.3); White Blood Count 4.6 T/CUMM (4-12)
[2022-03-23 05:10] LABS: Platelet Count 27 T/CUMM (130-400)
[2022-03-23 05:34] LABS: Band Neutrophils 3 % (0-10); Lymphocytes 39 % (20-55); Total Cells Counted 100
[2022-03-23 05:35] LABS: Microcytosis Slight; Platelet Estimate Decreased
[2022-03-23 05:48] LABS: Albumin 2.6 G/DL (3.4-5.0); Bilirubin,Total 0.8 MG/DL (0.20-1.00); Calcium 8.1 MG/DL (8.5-10.1); Osmolality,Calculated 280.4 MOS/KG (273-304); Potassium 4.6 MMOL/L (3.5-5.1); Total Protein 5.2 G/DL (6.4-8.2)
[2022-03-23] MEDS: FILGRASTIM-SNDZ 300 MCG/0.5 ML SYRINGE SUBCUT SCH (08:57)
[2022-03-23] MEDS: DOCUSATE SODIUM 100 MG CAPSULE PO SCH ×2 (08:57→21:19)
[2022-03-23] MEDS: PANTOPRAZOLE 40 MG TABLET PO SCH (08:57)
[2022-03-23] MEDS ORDERED: DEXTROSE 5% 1,000 ML IV SCH (09:00)
[2022-03-23] MEDS ORDERED: FUROSEMIDE 20 MG/2 ML VIAL IV ONE (10:52)
[2022-03-24] MEDS: ALBUTEROL/IPRATROPIUM 3 ML NEB RESP TX SCH ×4 (01:25→19:06)
[2022-03-24] MEDS: MEROPENEM 500 MG in SODIUM CHLORIDE 0.9% 100 ML IV SCH ×4 (04:15→21:29)
[2022-03-24 05:06] LABS: Basophils % 0.2 % (0.0-0.8); Eosinophils % 0.7 % (0.00-10.9); Hematocrit 27.2 VOL% (42.0-52.0); Hemoglobin 8.3 GM/DL (14.0-18.0); Immature Granulocytes % 0.7 %; Immature Granulocytes Absolute 0.04 #; Lymphocytes # 2.6 10*3/uL (1.4-4.0); Lymphocytes % 46.2 % (21.2-54.2); Mean Corpuscular HGB Conc 30.5 GM/DL (32-36); Mean Corpuscular Volume 100.4 FL (87-102); Monocytes # 0.1 10*3/uL (0.11-0.8); Monocytes % 1.4 % (1.7-12.7); Neutrophils % 50.8 % (38.7-73.9); Red Blood Count 2.71 MC/CUMM (3.8-5.5); Red Cell Distribution Width 14.5 % (9.3-17.3); White Blood Count 5.6 T/CUMM (4-12)
[2022-03-24 05:14] LABS: Platelet Count 35 T/CUMM (130-400)
[2022-03-24 05:25] LABS: Albumin 2.7 G/DL (3.4-5.0); Bilirubin,Total 0.8 MG/DL (0.20-1.00); Calcium 7.7 MG/DL (8.5-10.1); Osmolality,Calculated 286.8 MOS/KG (273-304); Total Protein 4.8 G/DL (6.4-8.2)
[2022-03-24 05:34] LABS: Band Neutrophils 1 % (0-10); Eosinophils 1 % (0-10); Hypochromia Slight; Lymphocytes 53 % (20-55); Microcytosis Slight; Nucleated Red Blood Cells 1 /100 WBC (0-5); Platelet Estimate Decreased; Total Cells Counted 100
[2022-03-24] MEDS: FILGRASTIM-SNDZ 300 MCG/0.5 ML SYRINGE SUBCUT SCH (09:03)
[2022-03-24] MEDS: PANTOPRAZOLE 40 MG TABLET PO SCH (09:04)
[2022-03-24] MEDS: DOCUSATE SODIUM 100 MG CAPSULE PO SCH ×2 (09:04→20:36)
[2022-03-24] MEDS: carvediloL 3.125 MG TABLET PO SCH (20:36)
[2022-03-24] MEDS: TAMSULOSIN 0.4 MG CAPSULE PO SCH (20:36)
[2022-03-25] MEDS: ALBUTEROL/IPRATROPIUM 3 ML NEB RESP TX SCH ×3 (01:00→13:51)
[2022-03-25] MEDS: MEROPENEM 500 MG in SODIUM CHLORIDE 0.9% 100 ML IV SCH ×3 (03:54→16:50)
[2022-03-25 05:12] LABS: Basophils % 0.2 % (0.0-0.8); Eosinophils % 0.5 % (0.00-10.9); Hemoglobin 8.1 GM/DL (14.0-18.0); Immature Granulocytes % 0.5 %; Immature Granulocytes Absolute 0.03 #; Lymphocytes # 2.5 10*3/uL (1.4-4.0); Lymphocytes % 41.3 % (21.2-54.2); Mean Corpuscular Volume 100.7 FL (87-102); Monocytes # 0.2 10*3/uL (0.11-0.8); Monocytes % 2.9 % (1.7-12.7); NRBC # 0.03 10*3/uL; Neutrophils % 54.6 % (38.7-73.9); Platelet Count 42 T/CUMM (130-400); Red Blood Count 2.68 MC/CUMM (3.8-5.5); Red Cell Distribution Width 14.9 % (9.3-17.3); White Blood Count 6.1 T/CUMM (4-12)
[2022-03-25 05:31] LABS: Albumin 2.6 G/DL (3.4-5.0); Bilirubin,Total 0.7 MG/DL (0.20-1.00); Calcium 8.2 MG/DL (8.5-10.1); Osmolality,Calculated 287.7 MOS/KG (273-304); Potassium 3.8 MMOL/L (3.5-5.1); Total Protein 4.8 G/DL (6.4-8.2)
[2022-03-25 05:36] LABS: Hypochromia Slight; Lymphocytes 44 % (20-55); Platelet Estimate Decreased; Total Cells Counted 100
[2022-03-25] MEDS: PANTOPRAZOLE 40 MG TABLET PO SCH (08:48)
[2022-03-25] MEDS: TAMSULOSIN 0.4 MG CAPSULE PO SCH (08:48)
[2022-03-25] MEDS: DOCUSATE SODIUM 100 MG CAPSULE PO SCH (08:48)
[2022-03-25] MEDS: carvediloL 3.125 MG TABLET PO SCH (08:48)
[2022-03-25] MEDS: FILGRASTIM-SNDZ 300 MCG/0.5 ML SYRINGE SUBCUT SCH (08:49)
[2022-03-25] MEDS ORDERED: FUROSEMIDE 20 MG/2 ML VIAL IV ONE (13:39)
[2022-03-25 15:42] VITALS: BP 131/72
== END 2022-03-25 17:19 | disposition home or self-care (01) | DRG 809 ==
LOC: N.ED 00:10 → N.EDINP 02:55 → SUATTDRO 02:55 → N.EDINP 15:45 → N.TELES 15:49
PROVIDERS: ADMIT Internal Medicine; ATTEND Internal Medicine